=== PATIENT | male | born 1945 | race Caucasian/White ===

== ENCOUNTER 2017-02-26 11:41 | Emergency (ER) | payer OTHER ==
[~2017-02-26] VITALS: Ht 185.4 cm; Wt 159.1 kg
[2017-02-26 11:55] VITALS: BP 121/66; PULSE 86; RESP 16; O2SAT 97
[2017-02-26 13:39] LABS: BASOPHILS % (AUTO) 0.8 % (0-3); EOSINOPHILS % (AUTO) 4.8 % (0-5); MONOCYTES % (AUTO) 7.2 % (4-12); Mean Corpuscular Hemoglobin 34.1 pg (27.0-35.0); Mean Corpuscular Volume 94.1 fL (81-100); NEUTROPHILS % (AUTO) 60.1 % (40-74); Platelet Count 87 bil/L (150-400)
[2017-02-26 13:58] LABS: TROPONIN T < 0.010 ug/L (0.0-0.011)
--- NOTE | 2017-02-26 14:52 | ED.REPORT ---
HPI-General Illness Date of Service February 26, 2017 ED Provider: Kush Barragan PA-C Lewis is a 71-year-old male with a history of hypertension, diabetes, COPD, stent placement in 1999 [facility] with an abnormal E[facility]. Patient was being seen to establish care with an abnormal EKG was noted and is asked to present to emergency department. Complaints, denies chest pain, palpitations. Admits to 2 episodes of a sensation of "effervescence" in his left arm, which he states is similar to what he felt prior to having his stents placed. He does not have the sensation currently. Admits to shortness of breath which he states is at baseline. Denies fever, chills, nausea, vomiting. Nursing Notes Stated Complaint: ABNORMAL EKG Chief Complaint: General Complaint Nursing Notes Reviewed: Yes Allergies: Coded Allergies: cephalexin (Verified Allergy, Unknown, Hives, 02/26/17) Scheduled Warfarin Sodium (Warfarin Sodium) 5 Mg Tablet 5 MG PO DAILY General Time Seen by MD: 12:46 Chief Complaint Other (abnormal EKG) Past Medical History Past Medical History DM, HTN, hypothyroid, COPD Past Surgical History 2 stents, roughly 2009 Physical Exam General: Well appearing, well developed, obese, no acute distress. Head: Atraumatic, normocephalic. Eyes: No scleral icterus or injection. No discharge. Vision grossly intact. ENT: Voice clear, hearing grossly intact. Respiratory: Regular rate and rhythm. Breath sounds present, clear to auscultation and equal bilaterally. No respiratory distress. No increased work of breathing, speaks in complete sentences. Cardiovascular: Irregularly irregular rate and rhythm, without murmur, gallop or rub. Trace pedal edema. Gastrointestinal: Protuberant abdomen non-tender without guarding or rebound. Bowel sounds normoactive. Skin: Warm and dry. Neurological: Grossly nonfocal. Psychological: Alert and oriented. Speech appropriate, linear and logical. Behavior appropriate. Vital Signs Vital Signs Date Time Temp Pulse Resp B/P Pulse Ox O2 Delivery O2 Flow Rate FiO2 02/26/17 16:24 36.4 89 18 136/1 97 Room Air 02/26/17 11:55 36.2 86 16 121/66 97 Room Air Initial VS: Vital signs normal Interpretation & Diagnostics Lab Results Interpretation Result Diagram: 02/26/17 1240 02/26/17 1240 Test 02/26/17 11:45 02/26/17 12:40 Hold Urine Received (Received) White Blood Count 3.8th/mm3 (3.8-10.1) Red Blood Count 4.08mil/mm3 (4.40-5.80) Hemoglobin 13.9g/dL (13.8-17.2) Hematocrit 38.4% (41.0-50.0) Mean Corpuscular Volume 94.1fL (81-100) Mean Corpuscular Hemoglobin 34.1pg (27.0-35.0) Mean Corpuscular Hemoglobin Concent 36.2% (32.0-37.0) Red Cell Distribution Width 14.4% (12.3-15.4) Platelet Count 87bil/L (150-400) Neutrophils (%) (Auto) 60.1% (40-74) Lymphocytes (%) (Auto) 25.0% (14-46) Monocytes (%) (Auto) 7.2% (4-12) Eosinophils (%) (Auto) 4.8% (0-5) Basophils (%) (Auto) 0.8% (0-3) Sodium Level 139mEq/L (134-144) Potassium Level 3.8mEq/L (3.5-5.2) Chloride Level 99mEq/L (97-108) Carbon Dioxide Level 23mmol/L (18-29) Blood Urea Nitrogen 17mg/dL (8-27) Creatinine 0.74mg/dL (0.76-1.27) Estimat Glomerular Filtration Rate 111mL/min (>59) Glucose Level 67mg/dL (60-99) Calcium Level 9.6mg/dL (8.5-10.1) Total Bilirubin 0.9mg/dL (0.0-1.2) Aspartate Amino Transf (AST/SGOT) 52U/L (0-50) Alanine Aminotransferase (ALT/SGPT) 41U/L (0-44) Alkaline Phosphatase 56U/L (25-160) Troponin T < 0.010ug/L (0.0-0.011) Total Protein 7.2g/dL (6.4-8.4) Albumin 4.5g/dL (3.4-5.0) Thyroid Stimulating Hormone (TSH) 2.130uIU/mL (0.450-4.500) ECG Interpretation Time: 13:50 Interpreted by: ED physician Abnormal Rate: 100 Rhythm / Conduction: Atrial fibrillation, 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 Villegas 71-year-old male with a history of hypertension, diabetes and COPD presents from the [facility] for evaluation following a abnormal EKG. Patient denies any symptoms currently. He is unsure why he was directed to the emergency department. I can find no augmentation from the [facility] explaining why they wanted him to be seen. Physical examination is benign. EKG reveals atrial fibrillation, right bundle branch block and left anterior fascicular block. Troponin is negative, CBC and CMP are unremarkable. TSH is normal. This point I am reassured that he is not suffering an NE or immediately dangerous arrhythmia. I do not believe his atrial fibrillation is caused by hyperthyroidism. Discussed case with Dr. Perales who recommends placing the patient on anticoagulants due to his comorbidities. After extensive effort I am unable to establish contact with the [facility] to arrange follow-up for the patient. The patient is quite eager to be discharged. I discharged him with 35 mg Coumadin tablets to be taken one each day. Advising follow-up with primary care Wednesday or Wednesday to check Coumadin level. Provided emergency return precautions. Patient verbalizes understanding of and consented to the plan Consultation : Referral / Consult Name: Diaz Jackson MD Call Returned at: 14:48 Note: recommend placing the patient on anticoagulants if no risk factors, with the admonition to establish the patient in a Coumadin clinic if we are providing him with Coumadin. He advises checking TSH. He does not feel that a cardiology follow-up is imminently necessary if the patient is asymptomatic. Discharge & Departure Primary Impression: Atrial fibrillation Atrial fibrillation type: unspecified Qualified Code: I48.91 - Unspecified atrial fibrillation Disposition: Home Discharge Condition All VS Reviewed: Yes Condition: Stable Patient Instructions: Atrial Fibrillation (GEN) Additional Instructions: Evaluation in the emergency department for an abnormal EKG and involved history , physical examination, EKG and blood work. This reveals that have atrial fibrillation which is abnormal heartbeat. This is not immediately dangerous. Because this elevated to a risk of stroke, I will be prescribing a small amount of the anticoagulant warfarin. Please take this once a day for the next 3 days. Follow-up with your primary care provider on Wednesday or and establish a dose for continuing therapy. Return to emergency department for any new or worsening symptoms including pain in your chest or arm, nausea/vomiting, sweating, stroke symptoms such as one- sided weakness or difficulty speaking Referrals: MARLENA QUINTANILLAHI TASNEEM (PCP) EDSupervising Provider for APC: Jun Villegas MD copies to: MARLENA QUINTANILLAHI Kush Langley PA-C February 26, 2017 14:52
[2017-02-26] MEDS ORDERED: WARF5TAB7 PO (16:09)
[2017-02-26 16:24] VITALS: BP 136/1; PULSE 89; RESP 18; O2SAT 97
== END 2017-02-26 16:25 | disposition home or self-care (01) ==
LOC: SED 11:41
DX: I48.91 Unspecified atrial fibrillation (principal); I11.9 Hypertensive heart disease without heart failure; E11.59 Type 2 diabetes mellitus with other circulatory complications; I10 Essential (primary) hypertension; J44.9 Chronic obstructive pulmonary disease, unspecified; E03.9 Hypothyroidism, unspecified; Z79.01 Long term (current) use of anticoagulants; Z95.5 Presence of coronary angioplasty implant and graft; Z88.8 Allergy status to other drugs, medicaments and biological substances